=== PATIENT | female | born 1975 | race Caucasian/White ===

== ENCOUNTER 2022-10-31 07:43 | Outpatient (CLI) | payer OTHER, SELFPAY | END 2022-10-31 07:44 | disposition home or self-care (01) | PROVIDERS: PCP Family Medicine; Visit Provider Family Medicine | DX: I10 Essential (primary) hypertension (principal); E03.9 Hypothyroidism, unspecified | CPT/HCPCS: 80053; 84439; 84443 ==

== ENCOUNTER 2022-12-25 15:04 | Outpatient (CLI) | payer OTHER, SELFPAY | END 2022-12-25 15:05 | disposition home or self-care (01) | LOC: NFLDREF 12-26 09:43 | PROVIDERS: PCP Family Medicine; Referring Provider Family Medicine; Visit Provider Family Medicine | DX: E03.9 Hypothyroidism, unspecified (principal) | CPT/HCPCS: 84439; 84443 ==

== ENCOUNTER 2023-05-18 15:09 | Outpatient (CLI) | payer OTHER, SELFPAY | END 2023-05-18 15:10 | disposition home or self-care (01) | LOC: NFLDREF 15:10 | PROVIDERS: PCP Family Medicine; Visit Provider Family Medicine | DX: R25.1 Tremor, unspecified (principal); Z13.29 Encounter for screening for other suspected endocrine disorder; Z13.21 Encounter for screening for nutritional disorder | CPT/HCPCS: 84439; 84443 ==

== ENCOUNTER 2023-07-10 15:41 | Outpatient (CLI) | payer OTHER, SELFPAY | END 2023-07-10 15:42 | disposition home or self-care (01) | LOC: NFLDREF 07-15 04:26 | PROVIDERS: PCP Family Medicine; Referring Provider Family Medicine; Visit Provider Family Medicine | DX: E03.9 Hypothyroidism, unspecified (principal); R73.09 Other abnormal glucose | CPT/HCPCS: 84439; 84443 ==

== ENCOUNTER 2023-07-30 16:18 | Outpatient (CLI) | payer OTHER, SELFPAY | END 2023-07-30 16:19 | disposition home or self-care (01) | PROVIDERS: PCP Family Medicine; Visit Provider Family Medicine | DX: E89.0 Postprocedural hypothyroidism (principal); Z30.8 Encounter for other contraceptive management | CPT/HCPCS: 83001; 84439; 84443 ==

== ENCOUNTER 2023-09-03 15:18 | Outpatient (CLI) | payer OTHER, SELFPAY | END 2023-09-03 15:19 | disposition home or self-care (01) | LOC: NFLDREF 09-17 11:18 | PROVIDERS: PCP Family Medicine; Visit Provider Family Medicine | DX: E89.0 Postprocedural hypothyroidism (principal) | CPT/HCPCS: 84439; 84443 ==

== ENCOUNTER 2024-03-31 16:13 | Outpatient (CLI) | payer OTHER, SELFPAY | END 2024-03-31 16:14 | disposition home or self-care (01) | PROVIDERS: PCP Family Medicine; Visit Provider Family Medicine | DX: E89.0 Postprocedural hypothyroidism (principal); I10 Essential (primary) hypertension; Z11.59 Encounter for screening for other viral diseases; Z13.220 Encounter for screening for lipoid disorders | CPT/HCPCS: 80053; 80061; 82043; 82570; 83001; 84443; 86803 ==

== ENCOUNTER 2024-10-23 15:03 | Outpatient (CLI) | payer OTHER, SELFPAY | END 2024-10-23 15:04 | disposition home or self-care (01) | PROVIDERS: PCP Family Medicine; Visit Provider Family Medicine | DX: E89.0 Postprocedural hypothyroidism (principal) | CPT/HCPCS: 84439; 84443 ==

== ENCOUNTER 2025-02-02 12:03 | Outpatient (CLI) | payer OTHER, SELFPAY | END 2025-02-02 12:04 | disposition home or self-care (01) | LOC: NFLDREF 02-04 16:59 | PROVIDERS: PCP Family Medicine; Referring Provider Family Medicine | DX: N30.00 Acute cystitis without hematuria (principal); B96.20 Unspecified Escherichia coli [E. coli] as the cause of diseases classified elsewhere | CPT/HCPCS: 87086 ==